=== PATIENT | male | born 1950 | race Caucasian/White ===

== ENCOUNTER → 2021-05-01 08:44 | Outpatient (CLI) | payer MEDICARE, SELFPAY ==
--- NOTE | 2021-05-01 08:51 | EKG12_ITS ---
Test Reason : PRE-OP Blood Pressure : / mmHG Vent. Rate : 077 BPM Atrial Rate : 077 BPM P-R Int : 230 ms QRS Dur : 080 ms QT Int : 376 ms P-R-T Axes : 045 -42 014 degrees QTc Int : 425 ms Sinus rhythm with 1st degree A-V block with Premature atrial complexes Left axis deviation Abnormal ECG Confirmed by FACUNDO ANTUNEZ, LINDA ([id number]), technical writer and editor DEJUAN MARQUEZ ([id number]) on 05/05/2021 10:18:55 AM Referred By: Mandeep Duval Confirmed By:LINDA LOREDO MD
== END ==
PROVIDERS: Referring Provider Orthopaedic Surgery; Visit Provider Orthopaedic Surgery
DX: Z01.810 Encounter for preprocedural cardiovascular examination (principal)
CPT/HCPCS: 93005

== ENCOUNTER 2021-07-28 11:22 | Outpatient (CLI) | payer MEDICARE, SELFPAY ==
--- NOTE | 2021-07-28 11:42 | RAD_ITS ---
STUDY: X-RAY CHEST REASON FOR EXAM: Male, 71 years old. PRE-OP TECHNIQUE: PA and lateral views of the chest. COMPARISON: None. FINDINGS: Lungs are adequately inflated. There appears to be patchy scarring in both lung bases; left greater than right. No acute infiltrate, consolidation or effusion. There is no demonstrated pleural abnormality. Normal size heart. Normal mediastinum and marce. Normal visualized pulmonary arteries. Normal visualized aortic arch and descending thoracic aorta. Normal visualized thoracic spine. Normal visualized ribs, clavicles, and shoulders. There is no demonstrated abnormality of the visualized soft tissue structures of the upper abdomen. RAD/Chest PA and Lateral IMPRESSION: Chronic scarring in both lung bases without acute findings Electronically Signed: Hi Cheatham DO at 16:43 EDT ,
[2021-07-28 12:12] LABS: Hematocrit 35.4 % (40-54); Hemoglobin 12.2 g/dL (13.0-16.5); Mean Corp Hgb Conc 34.5 g/dL (32-36); Mean Corpuscular Hgb 29.5 pg (27.0-32.0); Mean Corpuscular Volume 85.7 fL (80-94); Mean Platelet Vol. 8.7 fl (6.2-12.0); Platelet Count 475 K/mm3 (150-450); RBC Distribution Width CV 12.8 % (11.6-14.6); RBC Distribution Width SD 39.7 fl (35.1-43.9); Red Blood Count 4.13 M/mm3 (4.6-6.2); White Blood Count 9.7 K/mm3 (4.4-11.0)
[2021-07-28 12:52] LABS: Anion Gap 3 (5-15); BUN 15 mg/dL (7-18); BUN/Creat Ratio 16.7 RATIO (10-20); Chloride 106 mmol/L (98-107); EST Glomerular Filtration Rate 89 mL/min (>60); Est Glom Filt Rate - Afr Amer 107 mL/min (>60); Glucose 107 mg/dL (74-106); Potassium 3.9 mmol/L (3.5-5.1); Sodium Level 137 mmol/L (136-145)
== END 2021-07-28 23:59 | disposition home or self-care (01) ==
LOC: LAB 11:24
PROVIDERS: Referring Provider Orthopaedic Surgery; Visit Provider Orthopaedic Surgery
DX: Z01.811 Encounter for preprocedural respiratory examination (principal)
CPT/HCPCS: 36415; 71046; 80048; 85027

== ENCOUNTER 2021-08-01 08:30 | Outpatient (CLI) | payer MEDICARE, SELFPAY | END 2021-08-01 23:59 | disposition home or self-care (01) | LOC: PSN 08:31 | PROVIDERS: Referring Provider Orthopaedic Surgery; Visit Provider Orthopaedic Surgery | DX: Z11.59 Encounter for screening for other viral diseases (principal) | CPT/HCPCS: 87426; C9803 ==

== ENCOUNTER 2021-08-13 14:49 | Outpatient (CLI) | payer MEDICARE, SELFPAY ==
--- NOTE | 2021-08-13 09:30 | KNEE_PTH ---
PATIENT: FAVIAN JUAREZ LOC: [facility] U#:[id number] AGE/SX: 71/M ROOM: RE08/13/[address]: Dr. Mandeep Duval MD : [id number] BED: DIS: 08/13/2021 SPEC #: [id number] RECD: 08/14/21 08:40 STATUS: JENNY REEan #: [id number] MITCHELL: 08/13/21 09:[address]: Mandeep Duval DEPT: SURGICAL PATHOLOGY RECD BY: Helena Washington ENTERED: 08/14/21 08:41 SP TYPE: TOTAL KNEE OTHR DR: Dr. Odilon Downs MD [facility] Tissues: Knee, NOS Procedures: Decalcification bone/plaque Surgery Specimen Level IV HEADER OPERATION: Left total knee arthroplasty PRE-OP DIAGNOSIS: Posttraumatic osteoarthritis TISSUE SUBMITTED: Left knee bone and tissue MICROSCOPIC DIAGNOSIS Left knee bone and tissue, total knee replacement/resection: Pieces of bone with degenerative osteoarthritic changes. Fibroadipose tissue, fibroconnective tissue and reactive synovial tissue. Focal changes consistent with pseudogout. ABBI:garcía 08/18/2021 MICROSCOPIC DESCRIPTION Slides are reviewed. GROSS DESCRIPTION Received is one container designated bone and soft tissue left knee. The specimen consists of multiple fragments of tello-yellow bone measuring in aggregate 14 x 11 x 4 cm. Also present in the specimen container are a few fragments of bone consistent with loose body. The soft tissue consists of fragments of tello-yellow soft tissue measuring 5 x 4 x 1.5 cm. Focal area also shows chalky white material. A number of bony fragments contain articular surfaces consistent with tibial plateau and femoral condyle and displaying prominent osteophyte formation, eburnation, and bone erosion. Cardiac Catheterization Technologist sections are submitted in two cassettes as follows: 1 - soft tissue, 2 - bone after decalcification. / ABBI:garcía 08/14/2021 TC:5 CPT: 86419, 94019
== END 2021-08-13 23:59 | disposition home or self-care (01) ==
LOC: LABSPEC 14:51
PROVIDERS: Visit Provider Orthopaedic Surgery
DX: M17.12 Unilateral primary osteoarthritis, left knee (principal)
CPT/HCPCS: 88305; 88311